=== PATIENT | male | born 1985 | race Hispanic/Latino ===

== ENCOUNTER 2025-07-25 13:30 | Emergency (ER) | payer SELFPAY ==
--- NOTE | ~2025-07-25 | XR_ITS ---
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 Technique: 2 views obtained. Findings: The lungs are clear, no effusion. No pneumothorax. Heart is normal size. Mediastinal and hilar contours are within normal limits. Bony thorax no acute abnormality. Impression: No acute cardiopulmonary abnormality. Reviewed, dictated and finalized at location P. [employer]IN [employer] SWE[employer] OPERATOR Impression: No acute cardiopulmonary abnormality.
--- NOTE | 2025-07-25 13:32 | ECG_ITS ---
Test Date: 2025-07-25 13:37:28 Measurements Intervals [place] Rate: 91 P: 59 SC: 150 QRS: 35 QRSD: 101 T: 23 QT: 326 QTc: 402 Interpretive Statements SINUS RHYTHM NORMAL ELECTROCARDIOGRAM No previous ECG available for comparison Electronically Signed On 07-26-2025 09:13:47 [employer]ELD WORK[employer] by Antonio Buenrostro M.D.
[2025-07-25 13:33] VITALS: BP 149/85; PULSE 92; RESP 27; TEMP 36.4; O2SAT 98
[2025-07-25 13:39] VITALS: O2SAT 98
[2025-07-25] MEDS: ASPIRIN 81 MG CHEWABLE TABLET 324 MG PO (13:44)
[2025-07-25 13:45] LABS: Hematocrit 44.4 % (42.0-52.0); Hemoglobin 15.9 g/dL (14.0-18.0); Immature Granulocyte Percent A 0.3 % (0-0.5); Lymphocytes Absolute Auto 1.48 K/mm3 (0.9-3.2); Mean Corpuscular HGB Conc 35.8 g/dl (32-36); Mean Corpuscular Hemoglobin 31.4 pg (26-34); Mean Corpuscular Volume 87.7 fl (80-100); Nucleated Red Blood Cells Absolute Auto 0.000 K/mm3 (0.0-0.012); Nucleated Red Blood Cells Perc 0.0 % (0.0-0.2); Platelet Count Result 241 k/mm3 (150-375); Red Blood Count 5.06 M/mm3 (4.6-6.20); White Blood Count 9.4 K/mm3 (4.5-10.0)
[2025-07-25 13:57] LABS: Alanine Aminotransferase 28 U/L (6-50); Albumin Level 4.8 g/dL (3.5-5.1); Alkaline Phosphatase 117 U/L (38-126); Anion Gap 8 mmol/L (4-12); Aspartate Amino Transferase 31 U/L (17-59); Bilirubin,Total 1.3 mg/dL (0.2-1.3); Blood Urea Nitrogen 15 mg/dL (9-20); Calcium 9.1 mg/dL (8.4-10.2); Carbon Dioxide 25 mmol/L (22-30); Chloride 104 mmol/L (98-107); Estimated CRCL calculation 110 ml/min; Estimated Glomerular Filt Rate > 60; Glucose 104 mg/dL (65-110); Lipase 33 U/L (23-300); Potassium 4.0 mmol/L (3.4-5.0); Sodium 137 mmol/L (137-145); Total Protein 7.7 g/dL (6.3-8.2)
[2025-07-25 14:08] LABS: Troponin I < 0.012 ng/mL (0.000-0.034)
[2025-07-25 14:14] LABS: INR 1.0; Prothrombin Time 13.2 Seconds (11.1-14.7)
[2025-07-25 14:15] LABS: Partial Thromboplastin Time 27.3 Seconds (22.3-36.8)
[2025-07-25] MEDS: BELLADONNA ALK/PHENOB ELIX 10 ML, MAG HYDROX/ALUMINUM HYD/SIMETH 30 ML, LIDOCAINE 2% VI... PO (14:20)
[2025-07-25 14:22] VITALS: BP 137/95; PULSE 89; RESP 22; O2SAT 100
--- NOTE | 2025-07-25 14:45 | ED.CHESTPAIN ---
HPI - Chest Pain General Chief Complaint: Chest Pain Stated Complaint: chest pain Time Seen by Provider: 07/25/25 13:37 History of Present Illness HPI narrative: patient is a 40-year-old male who presents ER with chest discomfort. Began around 10 or 11:00 a.m.. It is pressure. No radiation. No aggravating or alleviating factors. Associated with mild reflux. 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 Patient also reports he has had a couple beers. No history of heart disease. Related Data Allergies Allergy/AdvReac Type Severity Reaction Status Date / Time No Known Allergies Allergy Verified 07/25/25 13:42 Review of Systems Review of Systems: All systems reviewed & are unremarkable except as noted in HPI and below Constitutional: Constitutional: Reports no additional constitutional complaints Cardiovascular: Cardiovascular: Reports no additional cardiovascular complaints Respiratory: Respiratory: Reports no additional respiratory complaints Gastrointestinal: Gastrointestinal: Reports no additional gastrointestinal complaints Musculoskeletal: Musculoskeletal: Reports no additional musculoskeletal complaints [facility] Past Medical History Medical History (Updated 07/25/25 @ 15:44 by Oren Rivera MD) Healthy adult male Surgical History Surgical History (Updated 07/25/25 @ 14:47 by Oren Rivera MD) No pertinent past surgical history Exam Narrative: GENERAL: Well-appearing, well-nourished, and in no acute distress. HEAD: Normocephalic, atraumatic. ENT: Mucous membranes moist. CHEST: Clear to auscultation. No respiratory distress. HEART: Regular rate and rhythm. Normal peripheral pulses. ABDOMEN: Soft, nontender, nondistended. EXTREMITIES: Normal range of motion. No edema. SKIN: Warm, dry, no rash. NEURO: Alert and oriented x3. PSYCH: Normal mood and affect. Course Course Emergency Course: Troponin negative. Patient feels improved with GI cocktail. Discussed wanting to perform a 2nd troponin to ensure no injury to the heart. Patient declines because he is selling a trailer and people are wanting to meet him in about 20 minutes to pick it up. patient also is aware that there was cocaine in his system which is upsetting to him. Vital Signs Vital signs: Vital Signs Temperature 97.5 F L 07/25/25 13:33 Pulse Rate 92 07/25/25 13:33 Respiratory Rate 27 H 07/25/25 13:33 Blood Pressure 149/85 H 07/25/25 13:33 Pulse Oximetry 98 07/25/25 13:33 Oxygen Delivery Room Air 07/25/25 13:33 Temperature 97.5 F L 07/25/25 13:33 Pulse Rate 87 07/25/25 15:07 Respiratory Rate 19 07/25/25 15:07 Blood Pressure 140/86 07/25/25 15:07 Pulse Oximetry 98 07/25/25 15:07 Oxygen Delivery BiPAP 07/25/25 13:39 MDM - Chest Pain Differential Diagnosis Differential diagnosis: Likely fracture of rib, pneumothorax, atypical chest pain, st elevation myocardial infarction, biliary colic and other ( GERD, drug abuse) Lab Data Attestation: I reviewed the patient's lab results. 07/25/25 13:37 07/25/25 13:36 Labs: Lab Results 07/25/25 07/25/25 07/25/25 Range/Units 13:36 13:37 14:20 WBC 9.4 (4.5-10.0) K/mm3 RBC 5.06 (4.6-6.20) M/mm3 Hgb 15.9 (14.0-18.0) g/dL Hct 44.4 (42.0-52.0) % MCV 87.7 (80-100) fl MCH 31.4 (26-34) pg MCHC 35.8 (32-36) g/dl RDW 12.3 (11.5-14.5) % Plt Count 241 (150-375) k/mm3 MPV 9.9 (7.4-10.4) fl Immature Gran % (Auto) 0.3 (0-0.5) % Neut % (Auto) 73.6 H (45.5-73.1) % Lymph % (Auto) 15.8 L (18.3-44.2) % [place] % (Auto) 9.3 H (2.6-8.5) % Eos % (Auto) 0.5 (0-4.4) % Baso % (Auto) 0.5 (0.2-1.2) % Lymph # (Auto) 1.48 (0.9-3.2) K/mm3 [place] # (Auto) 0.9 H (0.1-0.6) K/mm3 Eos # (Auto) 0.1 (0-0.3) K/mm3 Baso # (Auto) 0.1 (0.0-0.1) K/mm3 Abs Immat Gran (auto) 0.03 (0.00-0.031) K/mm3 Absolute Neuts (auto) 6.9 H (1.3-6.7) K/mm3 Absolute Nucleated RBC 0.000 (0.0-0.012) K/mm3 Nucleated RBC % 0.0 (0.0-0.2) % PT 13.2 (11.1-14.7) Seconds INR 1.0 APTT 27.3 (22.3-36.8) Seconds Sodium 137 (137-145) mmol/L Potassium 4.0 (3.4-5.0) mmol/L Chloride 104 (98-107) mmol/L Carbon Dioxide 25 (22-30) mmol/L Anion Gap 8 (4-12) mmol/L BUN 15 (9-20) mg/dL Creatinine 0.85 (0.7-1.3) mg/dL Estim Creat Clear Calc 110 ml/min Estimated GFR > 60 (59 - ) Glucose 104 (65-110) mg/dL Calcium 9.1 (8.4-10.2) mg/dL Total Bilirubin 1.3 (0.2-1.3) mg/dL AST 31 (17-59) U/L ALT 28 (6-50) U/L Alkaline Phosphatase 117 (38-126) U/L Troponin I < 0.012 (0.000-0.034) ng/mL Total Protein 7.7 (6.3-8.2) g/dL Albumin 4.8 (3.5-5.1) g/dL Lipase 33 (23-300) U/L Urine Opiates Screen Negative (Negative) Urine Methadone Screen Negative (Negative) Ur Barbiturates Screen Negative (Negative) Ur Phencyclidine Scrn Negative (Negative) Ur Amphetamine Screen Negative (Negative) U Benzodiazepines Scrn Negative (Negative) Urine Cocaine Screen Positive A (Negative) U Cannabinoids Screen Negative (Negative) Ethyl Alcohol 11 (<10) mg/dL Imaging Data Radiologist's impression: ITS Impressions Chest X-Ray 07/25/25 14:29 Impression: No acute cardiopulmonary abnormality. ECG Data EKG #1: ECG completion date: 07/25/25 ECG completion time: 13:37 EKG Interpretation: normal rate (91), sinus rhythm, non-specific ST changes, normal QRS, normal QT and NL axis Discharge Plan Discharge Clinical Impression: Atypical chest pain, Cocaine use Patient Disposition: Home Condition: Stable Instructions: Chest Pain (ED) Additional Instructions: Please return to the emergency department if you develop severe and persistent chest pain, difficulty breathing, dizziness, leg swelling or if you are coughing up blood as these can be signs of a medical emergency. Please call your doctor for a follow up appointment to determine the need for further testing. Patient Language: Citizen Of [place] Follow-up/Referrals: PHYSICIAN,TECHNICAL ACCOUNT EXECUTIVE [Primary Care Provider, Internal Medicine] Tone Titus MD [Physician, Family Practice] - 1 Week Quality HEART score for chest pain patients History: slightly suspicious ECG: normal Age: < or = to 45 years Risk factors: no risk factors known Troponin: < or = to 1x normal limit Heart score: 0
[2025-07-25 14:46] LABS: Cannabinoid Screen Urine Negative (Negative)
[2025-07-25 15:07] VITALS: BP 140/86; PULSE 87; RESP 19; O2SAT 98
[2025-07-25 15:50] VITALS: BP 138/77; PULSE 94; RESP 20; O2SAT 100
== END 2025-07-25 15:54 | disposition home or self-care (01) ==
PROVIDERS: Emergency Provider Emergency Medicine
DX: R07.89 Other chest pain (principal); F14.90 Cocaine use, unspecified, uncomplicated
CPT/HCPCS: 36415; 71046; 80053; 80307; 82077; 83690; 84484; 85025; 85610; 85730; 93005; 99284; A9270